=== PATIENT | female | born 1945 | race Caucasian/White ===

== ENCOUNTER 2024-07-19 06:13 | Outpatient (CLI) | payer MEDICARE | END 2024-07-19 23:59 | disposition home or self-care (01) | LOC: MRI02 06:13 | PROVIDERS: ATTEND Family Medicine Sports Medicine | DX: M47.813 Spondylosis without myelopathy or radiculopathy, cervicothoracic region (principal); M48.03 Spinal stenosis, cervicothoracic region; M50.31 Other cervical disc degeneration, high cervical region; M25.78 Osteophyte, vertebrae; M77.9 Enthesopathy, unspecified; M54.50 Low back pain, unspecified; M16.12 Unilateral primary osteoarthritis, left hip | CPT/HCPCS: 72141 ==